=== PATIENT | male | born 1935 | race Caucasian/White ===

== ENCOUNTER → 2016-05-01 | Outpatient (CLI) | payer MEDICARE, BC ==
[~2016-05-01] MED LIST: ALENDRONATE SOD70 M1 PO; ALEVE; AMLODIPINE BES2.5 MG PO; ANTIVERT PO; ASPIRIN81 M2 PO; ATORVASTATIN CA10 MG PO; AVODART0.5 MG PO; CERTAGEN PO; CHILDREN'S ASPIRIN; CITALOPRAM HBR40 MG PO; CLARITIN10 M3 PO; COLESTID PO; COLESTID1 GM PO; FERROUS SULFAT325 MG PO; FLOMAX0.4 MG PO; FLOVENT DI50 MCG/DIS IH; FLUTICASONE PROPIONATE; FOSAMAX70 MG PO; HYDROCODON-ACE1 EACH PO; IRON1 TAB PO; JALYN 0.5-0.41 EACH PO; LOMITIL; LOMOTIL WHITE2.5 M1 PO; LOPRESSOR PO; MULTI VITAMIN1 EACH PO; OPDIVO100 MG/10 IV; OPDIVO40 MG/4 ML IV; OXYCODON HCL-AP1 TA2 PO; PHENERGAN PO; PREDNISONE PO; PREVACID PO; TOPROL XL PO; VICODIN 5/1 TAB 5/50 PO; VITAMIN C 500 MG; VITAMIN C500 M1 PO; VITAMIN C500 MG PO; VOTRIENT200 MG PO; ZANTAC PO; ZANTAC150 M1 PO; ZOCOR PO; ZOVIRAX800 MG PO
--- NOTE | ~2016-05-01 | MR17 ---
[facility] A Service of [facility] & [facility] RADIOLOGY TEXT RESULTS PATIENT: ROBIN ZAMARRIPA LOCATION: [facility] : 34 UNIT #: [id number] AGE: [address]: Dejan Ortiz MD SEX: M ORDER DR: [id number] [facility] [address] [place], [place] [address] [id number] O MR#: [id number] Acc #: [id number] NAME: ROBIN ZAMARRIPA : 1935 SEX: M STUDY DATE/TIME: 05/01/2016 18:46 UNIT: [facility] ROOM: STUDY DESCRIPTION: MR Brain WWo Contrast Attending Physician: Dejan Ortiz M.D. Ordering Physician: Dejan Ortiz M.D. Primary Care Physician: No Primary Care Physician MRI CENTER REPORT This report is preliminary unless electronic signature is present. EXAM MRI of the brain with and without HISTORY Disorientation. Takes a long time to do things. Symptoms for less than a week. The patient feels like his behavior has changed. History of a renal cell carcinoma in 2007 treated with radiation chemotherapy. No trauma. No brain surgery. COMMENT MRI of the brain was performed prior to and following the intravenous administration of 13 mL of MultiHance. COMPARISON There is comparison from 09/16/2014. FINDINGS There is no evidence for a recent ischemic insult on the diffusion series. There is some motion limiting throughout the study. There is generalized atrophy. No Chiari-1 malformation. No extraaxial fluid collection. There is fluid or inflammatory change in the right side mastoid air cells minimally at the left mastoid tip with mild mucosal disease in the maxillary sinuses, partial opacification of the ethmoid air cells bilaterally, and mild mucosal disease in the right frontal sinus. No sinus air-fluid level. The patient has had cataract surgery bilaterally. No extraaxial fluid collection. There is svxa-az-rgdhhgjh white matter signal abnormality nonspecific likely due to small vessel disease in age group most confluent in the periventricular white matter. Probably some opacification of the small left lateral sphenoid air cell chronic. The major intracranial flow voids are maintained. There is no MRI evidence for intracranial hemorrhage. There is no intracranial mass effect. Following contrast administration, there is no pathologic intracranial enhancement. There is nothing to suggest intracranial metastatic disease. [facility] A Service of [facility] RADIOLOGY TEXT RESULTS PATIENT: ROBIN ZAMARRIPA LOCATION: [facility] : 34 UNIT #: [id number] AGE: [address]: Dejan Ortiz MD SEX: M ORDER DR: IMPRESSION 1. No evidence for intracranial metastatic disease. 2. Atrophy and probable sequelae of small vessel disease. Study is somewhat motion-limited. 3. Paranasal sinus disease without air-fluid level. Fluid or inflammatory change mastoid air cells right greater than left. Dictated by... Yelena Ewing M.D. THIS IS AN ELECTRONICALLY VERIFIED REPORT Yelena Ewing M.D. at 05/02/2016 4:43 PM JONATHAN/chicho TD: 05/02/2016 11:41 JOB #: [id number] MRI CENTER REPORT COPY
[2016-05-01 19:00] LABS: POC - CREATININE 1.24 mg/dL (0.64-1.27)
== END | disposition home or self-care (01) ==
LOC: CMRI 18:12
PROVIDERS: Internal Medicine Hematology & Oncology
DX: R41.0 Disorientation, unspecified (principal); C78.89 Secondary malignant neoplasm of other digestive organs; C80.1 Malignant (primary) neoplasm, unspecified; G31.9 Degenerative disease of nervous system, unspecified; J32.9 Chronic sinusitis, unspecified
CPT/HCPCS: 70553; 82565; A9577

== ENCOUNTER → 2016-06-19 | Outpatient (CLI) | payer MEDICARE, BC ==
--- NOTE | ~2016-06-19 | CT57 ---
[facility] A Service of [facility] RADIOLOGY TEXT RESULTS PATIENT: ROBIN ZAMARRIPA LOCATION: [facility] : 34 UNIT #: [id number] AGE: [address]: Dejan Ortiz MD SEX: M ORDER DR: [id number] [place] [id number] [facility]. [place], [place] [address] [id number] O MR#: [id number] Acc #: [id number] NAME: ROBIN ZAMARRIPA : 1935 SEX: M STUDY DATE/TIME: 06/19/2016 13:59 [facility] RO[facility]: STUDY DESCRIPTION: CT Chest Wo Cont Attending Physician: Dejan Ortiz M.D. Referring Physician: Dejan Ortiz M.D. Ordering Physician: Dejan Ortiz M.D. Primary Care Physician: Cr Noland M.D. MEDICAL IMAGING REPORT This report is preliminary unless electronic signature is present EXAM CT chest INDICATION Lung cancer. Malignant neoplasm of the left kidney. Metastatic disease, lung. Restaging. TECHNIQUE CT of the thorax without contrast. Coronal and sagittal reconstructions were obtained. This CT exam was performed with one or more of the following radiation dose reduction techniques: automatic exposure control, adjustment of mA and/or kV according to patient size, and iterative reconstruction. COMPARISON Concurrent CT abdomen dated 06/19/[address] chest dated 01/31/2016. FINDINGS Multiple pulmonary nodules are scattered throughout both lungs. Overall these pulmonary nodules have not significantly changed from the 01/31/2016 exam. There is a pulmonary nodule in the left lower lobe measuring 1.2 x 1.1 cm compared with 1.1 x 1.1 cm previously. A nodule in the right upper lobe measures 1.3 cm, unchanged. Smaller pulmonary nodules scattered throughout the lungs are unchanged as well. There is an area of parenchymal scarring in the perihilar right upper lobe which is also unchanged. Central airways are patent. No pathologically enlarged mediastinal or hilar lymph nodes. No pleural effusion. There is trace pericardial effusion. No acute osseous abnormalities. There has been kyphoplasty of the T8. STS. [facility] A Service of [facility] RADIOLOGY TEXT RESULTS PATIENT: ROBIN ZAMARRIPA [facility] UNIT #: [id number] AGE: [address]: Dejan Ortiz MD SEX: M ORDER DR: IMPRESSION 1. No evidence of disease progression. 2. Multiple pulmonary nodules scattered throughout both lungs have not significant changed from the 01/31/2016 exam. Dictated by... Jan Bullock M.D. THIS IS AN ELECTRONICALLY VERIFIED REPORT Jan Bullock M.D. at 06/20/2016 1:08 PM MISSY/marianne TD: 06/20/2016 12:01 JOB #: [id number] MEDICAL IMAGING REPORT Page 1 of 1 COPY
--- NOTE | ~2016-06-19 | CT7 ---
[facility] A Service of [facility] RADIOLOGY TEXT RESULTS PATIENT: ROBIN ZAMARRIPA LOCATION: [facility] : 34 UNIT #: [id number] AGE: [address]: Dejan Ortiz MD SEX: M ORDER DR: [id number] [facility] [address] [place], [place] [address] [id number] O MR#: [id number] Acc #: [id number] NAME: ROBIN ZAMARRIPA : 1935 SEX: M STUDY DATE/TIME: 06/19/2016 13:59 UNIT: [facility] ROOM: STUDY DESCRIPTION: CT Abdomen Wo Cont Attending Physician: Dejan Ortiz M.D. Referring Physician: Dejan Ortiz M.D. Ordering Physician: Dejan Ortiz M.D. Primary Care Physician: Cr Noland M.D. MEDICAL IMAGING REPORT This report is preliminary unless electronic signature is present EXAM CT of the abdomen without contrast INDICATION Renal cell carcinoma. Patient has a prior history of renal carcinoma of the left kidney, as well as lung cancer. This exam is requested for surveillance for metastatic disease. TECHNIQUE This CT exam was performed with one or more of the following radiation dose reduction techniques: automatic exposure control, adjustment of mA and/or kV according to patient size, and iterative reconstruction. Axial CT images were obtained from the dome of the diaphragm through the abdomen following the region of oral contrast material, the patient's CT chest will be dictated separately. FINDINGS Findings is status post left nephrectomy. Previously identified mass involving the junction of the body and tail of the pancreas measures about 3.6 x 3.4 cm. This is unchanged when compared to January,, and September 2015. As has been previously discussed, this could reflect primary pancreatic neoplasm or metastatic disease. There is also retroperitoneal lymph node measuring about 1.4 cm in size which is also stable when compared to prior studies. The patient is status post left nephrectomy. There is a small pericardial effusion. The liver appears unremarkable. Gallbladder is surgically absent. Spleen is within normal limits given unenhanced technique. Right adrenal gland and right kidney appear normal. There is atherosclerotic involvement of the abdominal aorta continues into the iliac vessels. The visualized portions of the bowel appear unremarkable. Review of bony windows demonstrate a right sixth rib fracture which is old and osteopenia. There is also a compression STS. [facility] A Service of [facility] RADIOLOGY TEXT RESULTS PATIENT: ROBIN ZAMARRIPA LOCATION: [facility] : 34 UNIT #: [id number] AGE: [address]: Dejan Ortiz MD SEX: M ORDER DR: deformity noted at L4 and L2 which has been present on prior studies. IMPRESSION 1. Stable mass involving the junction of the body and tail of the pancreas when compared to exams dating back to September 2015 as has been previously discussed. This could reflect either primary pancreatic neoplasm or metastatic disease. 2. Status post left nephrectomy. The patient has a persistent enlarged left retroperitoneal lymph node which has also been unchanged since September 2015. No new lesions are seen. Dictated by... Tatiana Pena M.D. THIS IS AN ELECTRONICALLY VERIFIED REPORT Tatiana Pena M.D. at 06/20/2016 12:56 PM AFF/ea TD: 06/20/2016 11:31 JOB #: [id number] MEDICAL IMAGING REPORT Page 1 of 1 COPY
== END | disposition home or self-care (01) ==
LOC: CCAT 12:38
DX: C64.2 Malignant neoplasm of left kidney, except renal pelvis (principal); C78.00 Secondary malignant neoplasm of unspecified lung; C78.89 Secondary malignant neoplasm of other digestive organs; E16.8 Other specified disorders of pancreatic internal secretion; K86.89 Other specified diseases of pancreas; R59.0 Localized enlarged lymph nodes; R91.8 Other nonspecific abnormal finding of lung field; Z90.5 Acquired absence of kidney
CPT/HCPCS: 71250; 74150

== ENCOUNTER → 2016-06-28 | Outpatient (CLI) | payer MEDICARE, BC ==
--- NOTE | ~2016-06-28 | CT122 ---
[facility] A Service of [facility] RADIOLOGY TEXT RESULTS PATIENT: ROBIN ZAMARRIPA LOCATION: [facility] : 34 UNIT #: [id number] AGE: [address]: Cr Noland MD SEX: M ORDER DR: [id number] [place] [id number] [facility]. [place], [place] [address] [id number] O MR#: [id number] Acc #: [id number] NAME: ROBIN ZAMARRIPA : 1935 SEX: M STUDY DATE/TIME: 06/28/2016 8:54 UNIT: [facility] ROOM: STUDY DESCRIPTION: CT Thoracic Spine Wo Cont Attending Physician: Cr Noland M.D. Referring Physician: Cr Noland M.D. Ordering Physician: Cr Noland M.D. Primary Care Physician: Cr Noland M.D. MEDICAL IMAGING REPORT This report is preliminary unless electronic signature is present EXAM Thoracic spine CT no contrast PROCEDURE Axial thoracic spine CT without contrast with multiplanar reformats. This CT examination was performed with one or more of the following radiation dose reduction techniques: automatic exposure control, adjustment of mA and/or kV according to patient size, and iterative reconstruction. COMPARISON Chest CT dated 06/19/2016, 01/21/2016. HISTORY 1 year history of back pain. FINDINGS There is a chronic T8 compression fracture with prior kyphoplasty, unchanged in appearance since 06/19/2016. There are slight upper endplate wedge deformities at T3 and T4. These are also unchanged since the prior CT. There is no acute fracture, bone erosion or destruction. The adjacent soft tissues are unremarkable. Coronary atherosclerotic vascular calcification is noted. Pulmonary nodules are redemonstrated as well. IMPRESSION 1. No acute abnormality. Prior kyphoplasty at T8, stable height loss, no new fracture. Slight upper endplate deformity at T3 and T4 also chronic and stable. No new fracture, bone erosion or destruction. 2. Redemonstrated pulmonary nodules. No change since 06/19/2016 and in fact no change since 01/31/2016. [facility] A Service of [facility] RADIOLOGY TEXT RESULTS PATIENT: ROBIN ZAMARRIPA LOCATION: [facility] : 34 UNIT #: [id number] AGE: [address]: Cr Noland MD SEX: M ORDER DR: Dictated by... Adilson Bhakta M.D. THIS IS AN ELECTRONICALLY VERIFIED REPORT Adilson Bhakta M.D. at 06/29/2016 3:49 PM JAK/andrei TD: 06/29/2016 11:16 JOB #: [id number] MEDICAL IMAGING REPORT Page 1 of 1 COPY
--- NOTE | ~2016-06-28 | CT98 ---
[facility] A Service of [facility] RADIOLOGY TEXT RESULTS PATIENT: ROBIN ZAMARRIPA [facility] UNIT #: [id number] AGE: [address]: Cr Noland MD SEX: M ORDER DR: [id number] [facility] [address] [place], [place] [address] [id number] O MR#: [id number] Acc #: [id number] NAME: ROBIN ZAMARRIPA : 1935 SEX: M STUDY DATE/TIME: 06/28/2016 8:54 UNIT: [facility] ROOM: STUDY DESCRIPTION: CT Lumbar Spine Wo Cont Attending Physician: Cr Noland M.D. Referring Physician: Cr Noland M.D. Ordering Physician: Cr Noland M.D. Primary Care Physician: Cr Noland M.D. MEDICAL IMAGING REPORT This report is preliminary unless electronic signature is present EXAM Lumbar spine CT, no contrast, 06/28/2016. HISTORY Back pain for about 1 year. Known history of compression fractures. PROCEDURE Axial lumbar CT without contrast, with multiplanar reformats. This CT exam was performed with one or more of the following radiation dose reduction techniques: automatic exposure control, adjustment of mA and/or kV according to patient size, and iterative reconstruction. FINDINGS There is a chronic compression deformity at L4 with prior kyphoplasty and chronic compression deformity at L2, both unchanged since the CT examination of 06/19/2016. There has also been no interval change since the CT examination of 01/31/2016. No new fracture is seen. The paraspinous tissues are unremarkable. At L1-L2, there is no canal or foraminal stenosis. At L2-L3, there is disc and endplate change and minimal canal narrowing and borderline to mild right and mild left foraminal narrowing. At L3-L4, a disc bulge, facet arthropathy, and ligamentum thickening causes moderate canal stenosis and moderate or even moderate to severe right and mild to moderate or moderate left foraminal stenosis. At L4-L5, there is again moderate degenerative canal stenosis with moderate to severe right and left foraminal stenosis. At L5-S1, there is no canal stenosis and minimal, if any, bilateral STS. [facility] A Service of [facility] RADIOLOGY TEXT RESULTS PATIENT: ROBIN ZAMARRIPA [id number] : 34 UNIT #: [id number] AGE: [address]: Cr Noland MD SEX: M ORDER DR: foraminal narrowing. IMPRESSION 1. No change since 01/31/2016. Stable compression deformities at L2 and L4, with kyphoplasty at L4, unchanged again since January 2016. No new abnormality. 2. Areas of canal and foraminal degenerative narrowing are detailed above, as well. Dictated by... Adilson Bhakta M.D. THIS IS AN ELECTRONICALLY VERIFIED REPORT Adilson Bhakta M.D. at 06/29/2016 3:49 PM JAK/chacha TD: 06/29/2016 12:31 JOB #: [id number] MEDICAL IMAGING REPORT Page 1 of 1 COPY
== END | disposition home or self-care (01) ==
LOC: CCAT 07:59
DX: M48.50XA Collapsed vertebra, not elsewhere classified, site unspecified, initial encounter for fracture (principal); R91.8 Other nonspecific abnormal finding of lung field; M48.06 Spinal stenosis, lumbar region; M99.83 Other biomechanical lesions of lumbar region; Z98.890 Other specified postprocedural states
CPT/HCPCS: 72128; 72131

== ENCOUNTER → 2016-11-07 | Outpatient (CLI) | payer MEDICARE, BC ==
--- NOTE | ~2016-11-07 | CT4 ---
[facility] A Service of [facility] RADIOLOGY TEXT RESULTS PATIENT: ROBIN ZAMARRIPA [facility] UNIT #: [id number] AGE: [address]: Dejan Ortiz MD SEX: M ORDER DR: [id number] [facility] [address] [place], [place] [address] [id number] O MR#: [id number] [facility] #: [id number] NAME: ROBIN ZAMARRIPA : 1935 SEX: M STUDY DATE/TIME: 11/07/2016 10:47 [facility] RO[facility]: STUDY DESCRIPTION: CT Abd and Pelv Wo Cont Attending Physician: Dejan Ortiz M.D. Referring Physician: Dejan Ortiz M.D. Ordering Physician: Dejan Ortiz M.D. Primary Care Physician: Cr Noland M.D. MEDICAL IMAGING REPORT This report is preliminary unless electronic signature is present EXAM CT abdomen and pelvis without contrast 11/07/2016 1047 hours HISTORY 81-year-old man with history of kidney cancer, gallbladder cancer, lung cancer status post chemo and radiation therapy. Patient has been on OPDIVO for 2 years. Observation for suspected malignant neoplasm. No acute abdominal complaints today. COMPARISON CT abdomen 06/19/2016 TECHNIQUE Helical noncontrasted images were obtained from the lung bases through the pubic symphysis. Oral contrast only was administered. Total exam DLP 919 mGy-cm for the chest abdomen and pelvis study today. This CT exam was performed with one or more of the following radiation dose reduction techniques: automatic control, adjustment of mA and/or kV according to patient size, and iterative reconstruction. FINDINGS Images through the lung bases demonstrate bilateral pulmonary parenchymal nodules which are stable to minimally increased. Please see chest CT for details of lung findings. Images through the abdomen demonstrate a normal appearance to the liver, spleen. There is a mass abutting or arising from the junction of body and tail of the pancreas measuring 3.8 x 3.8 x 3.9 cm previously 3.4 x 3.6 x 3.9 cm suggesting increase in size. There is a stable 1.4 cm left periaortic lymph node adjacent to the surgical clips from prior left nephrectomy. There is no bile duct dilatation. The right adrenal gland is normal. I believe there is a small normal left adrenal gland. No right renal mass is seen. There is coarse atherosclerotic calcification [facility] A Service of [facility] RADIOLOGY TEXT RESULTS PATIENT: ROBIN ZAMARRIPA LOCATION: [facility] : 34 UNIT #: [id number] AGE: [address]: Dejan Ortiz MD SEX: M ORDER DR: of the abdominal aorta which remains normal in caliber. The stomach is contracted and poorly opacified but does appear normal. The small bowel is only partially opacified with contrast. There is no small bowel distension. The appendix is normal. There is a small amount of contrast in the right colon only. There is moderate stool throughout the colon with scattered colonic diverticula. There are numerous clustered diverticula in the sigmoid colon without definite wall thickening. The bladder, seminal vesicles and prostate are normal. Bone window images are not appreciably changed. There is vertebral body height loss at the superior endplates of L2 and L4 with some hyperdense material ant L4 likely vertebroplasty change. IMPRESSION 1. The mass density abutting the pancreas at the junction of body and tail is slightly larger measuring 3.8 x 3.8 x 3.9 cm previously 3.4 x 3.6 x 3.9 cm. There is a stable left periaortic lymph node at 1.4 cm. 2. No liver or adrenal lesions are seen. 3. Left nephrectomy change with stable noncontrasted appearance of the right kidney. 4. Diverticulosis without evidence of diverticulitis. 5. Stable vertebral body height loss at the superior plates of L2 and L4. 6. Mottled appearance to the bone of the right iliac wing unchanged. Dictated by... Crista Mclain M.D. THIS IS AN ELECTRONICALLY VERIFIED REPORT Crista Mclain M.D. at 11/09/2016 9:25 AM ALEXIA/emilio TD: 11/08/2016 16:56 JOB #: [id number] MEDICAL IMAGING REPORT Page 1 of 1 COPY
--- NOTE | ~2016-11-07 | CT57 ---
[facility] A Service of [facility] RADIOLOGY TEXT RESULTS PATIENT: ROBIN ZAMARRIPA LOCATION: [facility] : 34 UNIT #: [id number] AGE: [address]: Dejan Ortiz MD SEX: M ORDER DR: [id number] [facility] [address] [place], [place] [address] [id number] O MR#: [id number] [facility] #: [id number] NAME: ROBIN ZAMARRIPA : 1935 SEX: M STUDY DATE/TIME: 11/07/2016 10:47 UNIT: [facility] ROOM: STUDY DESCRIPTION: CT Chest Wo Cont Attending Physician: Dejan Ortiz M.D. Referring Physician: Dejan Ortiz M.D. Ordering Physician: Dejan Ortiz M.D. Primary Care Physician: Cr Noland M.D. MEDICAL IMAGING REPORT This report is preliminary unless electronic signature is present EXAM Chest CT, 11/07 INDICATIONS Metastatic renal cell cancer. Observation of malignant neoplasm. Restaging of disease. TECHNIQUE Axial images were obtained through the chest without contrast. Multiplanar reformats were obtained. Comparison made with 06/19/2016. This CT exam was performed with one or more of the following radiation dose reduction techniques: Automatic exposure control, adjustment of mA and/or kV according to patient size, and iterative reconstruction. FINDINGS There is coronary artery disease. Small volume of pericardial fluid is degebr-xl-mosyhomi improved. No pleural fluid is seen. There is no adenopathy. The patient has an azygos lobe. There is emphysema. There is a dominant right upper lobe nodule along the fissure measuring 16 x 13 mm. This was previously 13 x 13 mm. A left lower lobe nodule today measures 15 x 13 mm, where it was previously 12 x 11 mm. There is an additional left lower lobe nodule measuring 9 mm today, previously 8 mm. Multiple other, smaller pulmonary nodules scattered in both lungs are largely stable. Right midlung fibrosis is stable. For a description of findings in the upper abdomen, please see the abdomen and pelvis CT report, dictated separately. Not mentioned above is a potential lymph node behind the left inferior pulmonary vein. This measures about 13 mm in size and is probably present on the prior study in retrospect. Patient is status post kyphoplasty in the mid-thoracic spine. No clearly suspicious osseous lesions are seen. There are multiple wluakcju-hy-wpo right side rib fractures. IMPRESSION STS. [facility] A Service of [facility] RADIOLOGY TEXT RESULTS PATIENT: ROBIN ZAMARRIPA LOCATION: [facility] : 34 UNIT #: [id number] AGE: [address]: Dejan Ortiz MD SEX: M ORDER DR: 1. Numerous pulmonary nodules compatible with metastatic disease. The larger nodules do measure slightly larger than on the prior study, suggesting interval progression. The smaller nodules are relatively stable. 2. There is probably a lymph node behind the left inferior pulmonary vein. This is grossly stable at about 13 mm. 3. Emphysema with stable fibrosis in the right lung. Dictated by... Cr Christopher Jr., M.D. THIS IS AN ELECTRONICALLY VERIFIED REPORT Cr Christopher Jr., M.D. at 11/09/2016 8:29 AM GABBY/brant TD: 11/08/2016 16:48 JOB #: [id number] MEDICAL IMAGING REPORT Page 1 of 1 COPY
== END | disposition home or self-care (01) ==
LOC: CCAT 08:59
DX: C64.2 Malignant neoplasm of left kidney, except renal pelvis (principal); E16.8 Other specified disorders of pancreatic internal secretion; C78.00 Secondary malignant neoplasm of unspecified lung; C78.89 Secondary malignant neoplasm of other digestive organs; R91.8 Other nonspecific abnormal finding of lung field; J43.9 Emphysema, unspecified; J84.10 Pulmonary fibrosis, unspecified; K57.90 Diverticulosis of intestine, part unspecified, without perforation or abscess without bleeding; M51.86 Other intervertebral disc disorders, lumbar region; K86.89 Other specified diseases of pancreas; Z90.5 Acquired absence of kidney
CPT/HCPCS: 71250; 74176